=== PATIENT | female | born 1980 | race Caucasian/White ===

== ENCOUNTER 2017-07-07 13:45 | Emergency (ER) | payer BC, OTHER ==
[~2017-07-07] VITALS: Ht 170.2 cm; Wt 60.0 kg
[~2017-07-07 13:45] MED LIST: B-COTAB41 PO; CYCL-36; FLOV110A INH; IBUP600 PO; LORA10TA PO; OXYC1SOL5 PO; PREN1TAB30; RANI150
[2017-07-07 13:47] VITALS: BP 128/83; PULSE 73; RESP 14; TEMP 98.3; O2SAT 100
[2017-07-07] MEDS ORDERED: LIDOCAINE HCL 1% 50 ML VIAL INFIL ONE (14:30)
[2017-07-07] MEDS ORDERED: BUPIVACAINE HCL PF 0.5% 10 ML VIAL INFIL ONE (14:30)
--- NOTE | 2017-07-07 15:37 | PD ---
HPI Chief Complaint: Injury Time Seen by Provider: 14:27 Travel History International Travel<30 days: No Contact w/Intl Traveler<30days: No Traveled to known affect area: No History of Present Illness HPI 36-year-old female presents to the emergency Department with complaint of a fishhook stuck in her left thumb that occurred today. Up-to-date on tetanus vaccination. Has not taken any medications or tried any treatments to alleviate her symptoms. Rates pain 5/10. Pain is aggravated with movement of the fishhook. No known relieving factors. Denies paresthesias, loss of sensation, decreased range of motion, decreased strength to the affected finger. Primary care provider is Dr. Suazo. No known allergies. History of asthma. No other medical complaints. No other modifying factors or associated signs and symptoms. PFSH Past Medical History Asthma: Yes Cancer: No Cardiovascular Problems: No Diabetes: No Diminished Hearing: No Endocrine: No Gastrointestinal Disorders: Yes (ABDOMINAL PAIN) Genitourinary: No Hepatitis: No Hiatal Hernia: No Hypertension: No Immune Disorder: No Musculoskeletal: No Neurologic: No Psychiatric: No Reproductive: No Respiratory: Yes (ASTHMA) Immunizations Current: Yes Thyroid Disease: No ?: Not Past Surgical History Abdominal Surgery: Yes ([facility] BONNERE 2002) AICD: No Cardiac Surgery: No Cholecystectomy: Yes Ear Surgery: No Endocrine Surgery: No Eye Surgery: No Genitourinary Surgery: No Gynecologic Surgery: No Joint Replacement: No Neurologic Surgery: No Oral Surgery: Yes (WIS[employer] TEETH 1996) Pacemaker: No Thoracic Surgery: No Other Surgery: Yes (septoplasty) Social History Alcohol Use: No Tobacco Use: No Substance Use: No Allergies-Medications (Allergen,Severity, Reaction): Coded Allergies: No Known Allergies (Unverified , 01/28/16) Reported Meds & Prescriptions Reported Meds & Active Scripts Active Ibuprofen 800 Mg Tab 800 Mg PO Q6HR PRN Doxycycline Hyclate 100 Mg Cap 100 Mg PO BID 10 Days Oxycodone/Acetaminophen 5-325 mg/5Ml (Oxycodone W/ Acetaminophen) 5 mg/325 mg Tab 1 Tab PO Q4H Motrin 600 Mg Tab (Ibuprofen) 600 Mg Tab 600 Mg PO Q6H Reported Flovent Hfa (Fluticasone Propionate) 110 Mcg Aer 1 Puff INH HS Vitamin 27-0.8 mg ( Vit W/ Ferrous Fumara) 1 Tab Tab Vitamin B-Complex (Multivitamins/Vitamin B Complex) Vitamin Tab 1 Tab PO Zantac 150 Mg Tab (Ranitidine HCl) 150 Mg Tab 150 Mg .ROUTE DAILY Flexeril (Cyclobenzaprine HCl) 10 Mg Tab 10 Mg .ROUTE HS Claritin 10 Mg Tab (Loratadine) 10 Mg Tab 10 Mg PO Review of Systems Except as stated in HPI: all other systems reviewed are Neg Physical Exam Narrative GENERAL: Well-nourished, well-developed female patient, in no acute distress SKIN: Warm and dry. Palmar aspect of left thumb with noted fishhook; finger without erythema, edema, ecchymosis; with sensory intact and good cap refill. HEAD: Atraumatic. Normocephalic. EYES: Pupils equal and round. No scleral icterus. No injection or drainage. ENT: Mucosa pink and moist. Airway patent. NECK: Trachea midline. CARDIOVASCULAR: Regular rate. RESPIRATORY: No accessory muscle use. GASTROINTESTINAL: Flat. MUSCULOSKELETAL: No obvious deformities. No clubbing. No cyanosis. No edema. NEUROLOGICAL: Awake and alert. Oriented 3. No obvious cranial nerve deficits. Motor grossly within normal limits. Normal speech. PSYCHIATRIC: Appropriate mood and affect; insight and judgment normal. Data Data Last Documented VS Vital Signs Date Time Temp Pulse Resp B/P (MAP) Pulse Ox O2 Delivery O2 Flow Rate FiO2 07/07/17 13:47 98.3 73 14 128/83 (98) 100 Orders Orders Bupivacaine Pf 0.5% Inj (Marcaine Pf 0.5 (07/07/17 14:30) Lidocaine 1% Inj (50 Ml) (Xylocaine 1% I (07/07/17 14:30) Finger (Sph3wzz) (07/07/17 ) Ibuprofen (Motrin) (07/07/17 15:45) Ed Discharge Order (07/07/17 16:41) [facility] Medical Decision Making Medical Screen Exam Complete: Yes Emergency Medical Condition: Yes Medical Record Reviewed: Yes Differential Diagnosis Puncture wound, fishhook injury, medical clearance Narrative Course 36-year-old female with a fishhook stuck in her left thumb. Tetanus is up-to- date. See my procedure note for removal of fishhook. Ibuprofen administered in the ER. Post foreign body removal x-ray ordered. 1642: Left thumb x-ray with no radiopaque foreign body noted. Doxycycline and ibuprofen prescribed for home. Instructed patient to follow up with primary care provider. Patient verbalizes understanding and agreement with treatment plan. Patient is medically cleared and stable for discharge. Discussed reasons to return to the emergency department. Patient agrees with treatment plan. The patients vital signs are stable and the patient is stable for outpatient follow-up and treatment. Patient discharged home, stable and in no acute distress. Procedures Procedure Narrative LACERATION LOCATION: Left thumb with fishhook REMOVAL: The area of the laceration was prepped with Betadine and sterilely draped. The finger was digitally blocked with 1% lidocaine and 0.5% bupivacaine. An 18-gauge needle was used to hook the david of the fishhook and the fishhook was successfully removed. Area was cleaned with alcohol and Polysporin and a Band-Aid was applied. Patient tolerated the procedure well. Diagnosis Primary Impression: Fish hook injury of finger of left hand Qualified Codes: S69.92XA - Unspecified injury of left wrist, hand and finger( s), initial encounter Referrals: Primary Care Physician Patient Instructions: General Instructions, Puncture Wound (ED) Additional Instructions: Ibuprofen or Tylenol as directed and as needed for pain and inflammation Ice to affected finger to decrease pain and inflammation Antibiotics as prescribed and complete full course Topical antibiotic ointment as needed for wound care Return to the emergency department immediately with worsening of symptoms Med/Other Pt SpecificInfo: Prescription(s) given Scripts Ibuprofen (Ibuprofen) 800 Mg Tab 800 MG PO Q6HR Y for PAIN, #30 TAB 0 Refills Prov: Jena Somers 07/07/17 Doxycycline Hyclate (Doxycycline Hyclate) 100 Mg Cap 100 MG PO BID for Infection for 10 Days, #20 CAP 0 Refills Prov: Jena Somers 07/07/17 Disposition: 01 DISCHARGE HOME Condition: Stable Jena Somers Jul 07, 2017 15:37
[2017-07-07] MEDS ORDERED: IBUP1TAB7 PO (15:41)
[2017-07-07] MEDS ORDERED: DOXY100C PO (15:41)
[2017-07-07] MEDS ORDERED: IBUPROFEN 800 MG TAB PO ONE (15:45)
--- NOTE | 2017-07-07 16:13 | RADRPT ---
EXAM DATE/TIME: 07/07/2017 15:54 [facility] COMPARISON: No previous studies available for comparison. INDICATIONS : Fish hook stuck in thumb today. MEDICAL HISTORY : None. SURGICAL HISTORY : None. ENCOUNTER: Initial ACUITY: 1 day PAIN SCORE: 8/10 LOCATION: Left thumb. TECH NOTE: JANA HAGAN MR#[id number] :80 Exam date/desc:July 07, 2017FINGER LEFT 1ST DIGIT (MIN2 VWS) FINDINGS: Examination of the first digit of the left hand demonstrates no evidence of fracture or dislocation. No radiopaque foreign bodies are seen. The soft tissues suggest a mild soft tissue swelling mottled ventral to the distal phalanx. CONCLUSION: Negative for radiopaque foreign body. Ashu Freed MD on July 07, 2017 at 16:10 Board Certified Radiologist. This report was verified electronically.
== END 2017-07-07 17:03 | disposition home or self-care (01) ==
LOC: NEPD 13:45
DX: S61.042A Puncture wound with foreign body of left thumb without damage to nail, initial encounter (principal); J45.909 Unspecified asthma, uncomplicated; W26.8XXA Contact with other sharp object(s), not elsewhere classified, initial encounter
CPT/HCPCS: 10120; 73140